=== PATIENT | male | born 1970 | race Caucasian/White ===

== ENCOUNTER 2025-01-02 12:21 | Emergency (ER) | payer OTHER ==
[2025-01-02] MEDS ORDERED: Nitroglycerin 2% Ointment 1 INCH/1 GM Packet ONE (13:06)
[2025-01-02 13:16] LABS: #Basophils 0.07 10x3/uL (0.0-0.2); #Eosinophils 0.29 10x3/uL (0.0-0.5); #Monocytes 0.82 10x3/uL (0.0-1.1); #Neutrophils 4.27 10x3/uL (1.5-8.4); %Basophils 1.0 % (0.0-2.0); %Eosinophils 4.1 % (0.0-6.0); %Lymphocytes 23.5 % (18.0-47.0); %Monocytes 11.5 % (0.0-10.0); %Neutrophils 59.5 % (40.0-75.0); Hematocrit 38.5 % (38.8-50.0); Hemoglobin 13.0 g/dL (13.5-17.5); Mean Corpuscular Hemoglobin 29.4 pg (27.0-33.0); Mean Corpuscular Volume 87.1 fL (81.2-95.1); Platelet Count 256 10x3/uL (150-450); Red Blood Cell (RBC) Count 4.42 10x6/uL (4.32-5.72); White Blood Cell (WBC) Count 7.16 10x3/uL (3.5-10.5)
[2025-01-02 13:18] LABS: Troponin I Less than 0.010 ng/mL (< 0.028)
[2025-01-02 13:27] LABS: ALT (SGPT) 27 U/L (Less than 45); AST (SGOT) 26 U/L (11-34); Albumin 4.4 g/dL (3.1-4.5); Alkaline Phosphatase 81 U/L (40-110); Anion Gap 14 mmol/L (10-20); BUN (Urea Nitrogen) 22 mg/dL (8.4-25.7); Bilirubin, Total 0.3 mg/dL (0.3-1.2); Calc. Creatinine Clearance 0 mL/min (70-130); Calcium 9.0 mg/dL (7.8-10.44); Carbon Dioxide 23 mmol/L (22-29); Chloride 106 mmol/L (98-107); Globulin 2.8 g/dL (2.4-3.5); Glucose 92 mg/dL (70-105); Potassium 4.2 mmol/L (3.5-5.1); Sodium 139 mmol/L (136-145)
[2025-01-02 13:30] LABS: D-Dimer Test 0.36 mcg/mL (0.19-0.50); INR-International Normal Ratio 1.0; PTT 22.8 sec (22.0-33.0); Prothrombin Time 10.9 sec (9.5-12.1)
[2025-01-02] MEDS ORDERED: Ketorolac Tromethamine 30 MG (1 mL) VIAL ONE (13:54)
== END 2025-01-02 19:41 | disposition short-term general hospital (02) ==
LOC: CSHERS 12:21
DX: R07.9 Chest pain, unspecified (principal); I25.10 Atherosclerotic heart disease of native coronary artery without angina pectoris; I10 Essential (primary) hypertension
CPT/HCPCS: 36415; 71046; 80053; 84484; 85025; 85379; 85610; 85730; 93005; 96374; J1885